=== PATIENT | male | born 2000 | race Caucasian/White ===

== ENCOUNTER 2022-04-04 18:26 | Emergency (ER) | payer SELFPAY ==
--- NOTE | 2022-04-04 18:29 | XRR_ITS ---
PROCEDURE INFORMATION: Exam: XR Right Hand Exam date and time: 04/04/2022 8:07 PM Age: 21 years old Clinical indication: Injury or trauma; Other: Smashed hand in door; Swelling (edema); Right TECHNIQUE: Imaging protocol: Radiologic exam of the Right hand. Views: 1 or 2 views. COMPARISON: No relevant prior studies available. FINDINGS: Bones/joints: Normal. Soft tissues: Normal. XR/XR hand RT 2V [id number] IMPRESSION: No acute findings.
[2022-04-04 19:02] VITALS: BP 132/76; PULSE 95; RESP 16; TEMP 37; O2SAT 96
--- NOTE | 2022-04-04 19:58 | ED_ITS ---
HPI - General Adult General: Chief complaint: General Medical Stated complaint: Right hand injury Time Seen by Provider: 04/04/22 19:15 History of Present Illness: Patient is a 21-year-old male comes to the ED with right hand injury. Patient says he tripped when trying to close his vehicle door and accidentally slammed his second finger on right hand in a truck door. Denies any deformity. He rates the pain a 4 out of a 10. He has not taken any Tylenol or Motrin before coming to the ED. Associated symptoms: Deny chest pain, dyspnea, headache(s), nausea, rash, palpitations or vomiting Review of Systems Const: Denies: fever(s), chills or fatigue Eyes: Denies: change in vision or eye discomfort ENMT: Denies: throat pain, odynophagia, nasal discharge or nasal congestion Card: Denies: chest pain, palpitations, edema, swelling of feet/ankles, dyspnea on exertion or orthopnea Resp: Denies: dyspnea, productive cough or non-productive cough GI: Denies: abdominal pain, nausea, vomiting, diarrhea, constipation or abdoul tochezia : Denies: flank pain, difficulty urinating, dysuria or hematuria Musc: Reports: extremity pain (right hand); Denies: neck pain, back pain or extremity swelling Skin/Breast: Denies: rash or new lesions Neuro: Denies: headache(s), numbness in extremities or weakness in extremities [facility] ED PFSH: Medical History Chronic headaches Morbid obesity Social History Smoking and tobacco status: current some day smoker Physical Exam Const: COMMON NORMALS: patient oriented x3 HENMT: COMMON NORMALS: normocephalic HEAD & SCALP: normocephalic MOUTH: Normal oral and palatal mucosa present THROAT: posterior oropharynx normal and uvula midline Neck/C-Spine: COMMON NORMALS: supple GENERAL: Yes normal visual inspection Resp: COMMON NORMALS: normal respiratory effort, No retractions, No use of accessory muscles and clear to auscultation bilaterally AUSCULTATION: clear to auscultation bilaterally Cardio: COMMON NORMALS: regular rate, regular rhythm, S1 normal heart sound present, S2 normal heart sound present, No gallops present (Cardio), No clicks present (Cardio), No murmurs present (Cardio) and Peripheral pulses 2+ throughout RATE: regular rate RHYTHM: regular rhythm HEART SOUNDS: S1 normal heart sound present and S2 normal heart sound present PERIPHERAL PULSES: Peripheral pulses 2+ throughout GI: COMMON NORMALS: Normal to inspection, nondistended, normoactive bowel sounds present, Soft to palpation, non-tender and no masses PALPATION: Yes Soft to palpation : COMMON NORMALS: Yes no CVA tenderness BLADDER/KIDNEY EXAM: Yes no CVA tenderness Back/Pelvis: COMMON NORMALS: no CVA tenderness Extremity: NARRATIVE EXTREMITY EXAM: Right hand?second digit. Mild swelling. No subungual hematoma noted. No nail damage or nailbed injury noted. Neuro: COMMON NORMALS: patient oriented x3 GAIT: Yes Normal gait present Skin: GENERAL SKIN EXAM: dry skin Course Vital Signs: Vital signs: Vital Signs Temperature 98.6 F 04/04/22 19:02 Pulse Rate 95 04/04/22 19:02 Respiratory Rate 16 04/04/22 19:02 Blood Pressure 132/76 04/04/22 19:02 Pulse Oximetry 96 04/04/22 19:02 MDM - General Adult Medical Decision Making Patient is a 21-year-old male comes to the ED with right hand injury. Patient says he tripped when trying to close his vehicle door and accidentally slammed his second finger on right hand in a truck door. Denies any deformity. He rates the pain a 4 out of a 10. He has not taken any Tylenol or Motrin before coming to the ED. vitals are stable. Right hand?second digit. Mild swelling. No subungual hematoma noted. No nail damage or nailbed injury noted. X-ray of right hand showed no acute fractures or findings. Patient was diagnosed with a finger contusion and was stable for discharge home. Told to follow-up with PCP in the next week for reevaluation. Return to ED precautions given. Patient understood and agreed with plan. Lab Data Radiology Impressions Hand X-Ray 04/04/22 18:29 IMPRESSION: No acute findings. Discharge Plan Discharge Patient Disposition: Home Clinical Impression: Contusion of finger Qualifiers: Encounter type: initial encounter Finger: index finger Damage to nail status: without damage Laterality: right Qualified Code(s): S60.021A - Contusion of right index finger without damage to nail, initial encounter Condition: Stable Prescriptions: No Action ketorolac 10 mg tablet 10 mg PO Q6H PRN (Reason: headache) 5 Days Qty: 20 3RF fluticasone propionate 50 mcg/actuation spray,suspension 1 spray intranasal BID Qty: 32 3RF Rx Instructions: administer into each nostril Discharge Orders: Discharge ED (Routine); Ordered 04/04/22 Ordered By: Rashel Kwok Discharge Diet: Regular Discharge Activity: Resume usual activity Activity Restrictions/Additional Instructions: Follow-up with medical provider as directed in the next 7 to 10 days for reevalu ation. Apply cold pack on finger and elevate right hand to help with swelling. Take [id number] ibuprofen or Tylenol help with pain. Return to the ER or your medical provider if condition worsens. Please read and understand discharge instructions. Thank you for choosing [facility] for your healthcare needs today. Please realize this is an emergency room and that we are providing you with a medical screening exam and this may not be complete and all inclusive of all the testing and or work up that you may need to determine your ailment or severity of your illness. It is very important that you follow up as instructed or that you return to the Emergency Department should you have concerns or if your condition changes or worsens in any way. Coding Level of Care Code ED Lehr Operator for Logan Daniel Exam Comprehensive
== END 2022-04-04 21:11 | disposition home or self-care (01) ==
PROVIDERS: Emergency Provider Physician Assistant
DX: S60.021A Contusion of right index finger without damage to nail, initial encounter (principal); F17.210 Nicotine dependence, cigarettes, uncomplicated; W23.0XXA Caught, crushed, jammed, or pinched between moving objects, initial encounter
CPT/HCPCS: 73120; 99283